=== PATIENT | male | born 1980 | race Caucasian/White ===

== ENCOUNTER 2024-04-24 16:50 | Observation (INO) | payer BC, MEDICARE, SELFPAY ==
[2024-04-24] VITALS (8 sets, daily range): BP systolic 112–125; BP diastolic 55–80; PULSE 70–90; RESP 12–24; TEMP 36.9–37.6; O2SAT 98–99; BMI 20.4; BMI 19.3
--- NOTE | 2024-04-24 18:44 | ED_ITS ---
HPI - Skin/Abscess/Foreign Bdy General Chief complaint: Skin/Abscess/Foreign Body Stated complaint: rectal abscess? or something Time Seen by Provider: 04/24/24 18:44 Source: patient Mode of arrival: Ambulatory Limitations: no limitations History of Present Illness HPI narrative: Patient is a 43-year-old male with no significant past medical history presents to the ED from home for evaluation of swelling pain discharge from his anus. He states that he has had a history of abscess that required surgical treatment several years ago has been doing fine until over the past few days noticed pain discomfort and discharge from his anal region. He denies any systemic symptoms such as fevers chills chest pain shortness of breath or any other GI/ symptoms time. Related Data Allergies Allergy/AdvReac Type Severity Reaction Status Date / Time meperidine [From Demerol] Allergy Verified 04/24/24 16:56 Review of Systems Review of Systems Narrative: General: Denies fever, chills, weight loss HEENT: Denies headache, eye drainage, eye irritation, head trauma, sore throat, voice change Cardiovascular: Denies any chest pain, palpitations, shortness of breath, tachycardia Respiratory: Denies any shortness of breath, cough, wheeze, stridor GI/: Positive anal swelling pain discharge Denies any abdominal pain, nausea, vomiting, diarrhea, bright red blood per rectum, melanotic stools, urinary frequency, urinary retention, dysuria, hematuria MSK: Denies any joint pain, muscle pains, swelling Skin: Denies any rashes, lesions, discoloration Neuro: Denies any headache, lightheadedness, dizziness, fainting, weakness Psych: Denies SI/HI Patient History Social History Smoking Status: Never smoker Smoking Status: Never smoker Substance Use Type: does not use Exam Narrative Exam Narrative: General: Cooperative, comfortable, well-developed, not in acute distress HEENT: Normocephalic, atraumatic, PERRLA, normal sclera, eyelids normal, Neck: Active full range of motion, atraumatic Chest: Normal to inspection, negative crepitus, no overlying erythema ecchymosis Respiratory: Normal respiratory effort, not in acute respiratory distress, clear to auscultation bilaterally negative cough, wheeze, tachypnea, rhonchi, rales Cardiology: Regular rate rhythm negative gallop, murmur, rubs GI/: Normal to inspection, soft, nonrigid, no tenderness to palpation, rectal exam: Patient with significant indurated area of the anal region involving the rectum, purulent discharge was noted MSK: Full range of active range of motion of all 4 extremities, atraumatic Skin: No rashes lesions noted Neuro: Alert awake oriented x3, moves all 4 extremities spontaneously, cranial nerves intact, able to answer all questions appropriately follows commands appropriately Psych: Cooperative, negative suicidal or homicidal ideations Initial Vital Signs Initial Vital Signs: Vital Signs Temperature 98.4 F 04/24/24 16:56 Pulse Rate 90 04/24/24 16:56 Respiratory Rate 16 04/24/24 16:56 Blood Pressure 125/80 04/24/24 16:56 Pulse Oximetry 99 04/24/24 16:56 Oxygen Delivery Method Room Air 04/24/24 16:56 Course Orders Ordered: ED Orders 04/24/24 18:49 CT abdomen pelvis w con Stat Blood Culture Stat 04/24/24 18:57 Complete Blood Count AUTO DIFF Stat Comprehensive Metabolic Panel Stat Lactate (Lactic Acid) Stat Vancomycin HCl/Dextrose (Vancomycin) 1,500 mg in 300 mls @ 150 mls/hr IV NOW SONG Last Admin: 04/24/24 20:25 Dose: 150 mls/hr Documented By: BIN Vancomycin HCl (Vancomycin) 1,250 mg in 250 mls @ 125 mls/hr IV Q12H SONG Discontinued Medications Vancomycin HCl (Vancomycin) 1,000 mg in 200 mls @ 200 mls/hr IV NOW ONE Stop: 04/24/24 20:55 Vital Signs Vital signs: Vital Signs - 8 hr 04/24/24 16:56 Temperature 98.4 F Pulse Rate 90 Respiratory Rate 16 Blood Pressure 125/80 Pulse Oximetry 99 Oxygen Delivery Method Room Air MDM - Skin/Abscess/Foreign Bdy Differential Diagnosis Differential diagnosis: Likely abscess of skin or subcutaneous tissue and other (Cellulitis,) Lab Data 04/24/24 18:57 04/24/24 18:57 Labs: Lab Results 04/24/24 Range/Units 18:57 WBC 11.5 H (4.5-11.0) X10^3/uL RBC 4.59 (4.5-5.9) X10^6/uL Hgb 13.3 L (13.5-17.5) g/dL Hct 40.1 L (41-53) % MCV 87.3 (80-100) fL MCH 28.9 (26-34) PG MCHC 33.1 (30-36) % RDW 13.0 (11.6-14.8) % Plt Count 322 (150-400) X10^3/uL Neut % (Auto) 79.5 H (50-75) % Lymph % (Auto) 9.4 L (25-40) % Iron % (Auto) 9.7 (3-14) % Eos % (Auto) 1.0 L (2-4) % Baso % (Auto) 0.4 (0-2) % Neut # (Auto) 9200 H (4909-5883) /uL Lymph # (Auto) 1100 (9578-3389) /uL Iron # (Auto) 1100 H (0-900) /uL Eos # (Auto) 100 (0-450) /uL Baso # (Auto) 0 (0-100) /uL Sodium 138 (137-145) mmol/L Potassium 4.1 (3.4-5.1) mmol/L Chloride 102 (98-107) mmol/L Carbon Dioxide 29 (22-32) mmol/L BUN 11 (9-20) mg/dL Creatinine 0.76 (0.66-1.25) mg/dL Estimated GFR > 60 (>60) mL/min BUN/Creatinine Ratio 14.5 (6-22) Glucose 94 (70-100) mg/dL Lactate 0.6 L (0.7-2.1) mmol/L Calcium 9.6 (8.4-10.2) mg/dL Total Bilirubin 0.3 (0.2-1.3) mg/dL AST 17 (17-59) IU/L ALT 24 (<50) IU/L Alkaline Phosphatase 31 L (38-126) U/L Total Protein 7.8 (6.3-8.2) g/dL Albumin 4.2 (3.5-5.0) g/dL Globulin 3.6 (1.7-4.1) g/dL Albumin/Globulin Ratio 1.2 (1.0-2.8) Imaging Data CT scan - abdomen/pelvis: Radiologist's Impression: [address] [address] [address] Scan Report Signed Patient: Akil Quintanilla MR#: [id number] : 1980 Acct:[id number] Age/Sex: 43 / M Date of Service: 04/24/24 Loc: ED Accession Number: [id number] Procedure: CT abdomen pelvis w con Ordering Provider: Arnaldo Hagan D.O. in [place]: CT ABDOMEN PELVIS W CON INDICATIONS: Swelling pain abscess at the anus TECHNIQUE: After the administration of intravenous contrast, axial sections acquired from the lung bases to the pubic symphysis. Coronal and sagittal reformats were performed. For radiation dose reduction, the following was used: automated exposure control, adjustment of mA and/or kV according to patient size. COMPARISON: [facility], CT, CT ABDOMEN PELVIS WITH CONTRAST, 11/26/2022, 18:41. FINDINGS: Image quality: Diagnostic. Lower Chest: No significant findings. ABDOMEN: Liver: No solid mass. Gallbladder: No radiopaque gallstones or wall thickening. Biliary ducts: No biliary dilation. Pancreas: No ductal dilation. Spleen: Size is within normal limits. Adrenal Glands: No adrenal nodules. Kidneys and Ureters: No hydronephrosis. No solid mass. No complex renal cystic lesion which requires follow up. Stomach and Bowel: Remote subtotal colectomy with fatemeh rectum. The appearance of the fatemeh rectum is similar to previous. Small bowel loops are nondilated. There is perianal phlegmon or abscess to the left of midline, measuring approximately 1.4 x 0.9 cm. Peritoneum: No abnormal intraperitoneal fluid. No free air. Ventral Wall: No significant ventral hernia. Abdominal Nodes: No retroperitoneal or mesenteric adenopathy by size criteria. Vessels: Aorta and inferior vena cava are normal in size. PELVIS: Pelvic Organs: Unremarkable. Bladder: No bladder wall thickening, accounting for underdistention. Pelvic Nodes: No enlarged lymph nodes. Miscellaneous: No inguinal hernias are seen. Bones: No aggressive osseous abnormality. IMPRESSION: 1. Remote subtotal colectomy with fatemeh rectum. 2. Left perianal phlegmon versus abscess measuring 1.4 x 0.9 cm. [facility] Narrative Medical decision making narrative: Patient is a 43-year-old male history of anal abscesses requiring incision drainage in the OR presents for rectal pain, discharge, swelling. States he started noticing this a few days ago, denies any other systemic symptoms. Has been able to have a normal bowel movement. Patient with elevated lactate elevated white blood cells, vancomycin was ordered, CT scan showing left perianal phlegmon versus abscess, did discuss case with Dr. Root of General surgery who agrees patient to be admitted for IV antibiotics and possible drainage in the OR given how close it is to the rectum itself. Patient understands and agrees with this plan The patient's management plan was discussed Dr. Martinez, who agrees to admit the patient to their service and assumes care of this patient at this time. Full admission orders will be placed by the primary team. Discharge Plan Departure Patient Disposition: Admitted as Observation Clinical Impression: Abscess, perianal Admit Date/Time: 04/24/24 20:39 Admit Provider: David Martinez
--- NOTE | 2024-04-24 18:49 | DI.CT.S_ITS ---
P in ROC[place]URE: CT ABDOMEN PELVIS W CON INDICATIONS: Swelling pain abscess at the anus TECHNIQUE: After the administration of intravenous contrast, axial sections acquired from the lung bases to the pubic symphysis. Coronal and sagittal reformats were performed. For radiation dose reduction, the following was used: automated exposure control, adjustment of mA and/or kV according to patient size. COMPARISON: [facility], CT, CT ABDOMEN PELVIS WITH CONTRAST, 11/26/2022, 18:41. FINDINGS: Image quality: Diagnostic. Lower Chest: No significant findings. ABDOMEN: Liver: No solid mass. Gallbladder: No radiopaque gallstones or wall thickening. Biliary ducts: No biliary dilation. Pancreas: No ductal dilation. Spleen: Size is within normal limits. Adrenal Glands: No adrenal nodules. Kidneys and Ureters: No hydronephrosis. No solid mass. No complex renal cystic lesion which requires follow up. Stomach and Bowel: Remote subtotal colectomy with fatemeh rectum. The appearance of the fatemeh rectum is similar to previous. Small bowel loops are nondilated. There is perianal phlegmon or abscess to the left of midline, measuring approximately 1.4 x 0.9 cm. Peritoneum: No abnormal intraperitoneal fluid. No free air. Ventral Wall: No significant ventral hernia. Abdominal Nodes: No retroperitoneal or mesenteric adenopathy by size criteria. Vessels: Aorta and inferior vena cava are normal in size. PELVIS: Pelvic Organs: Unremarkable. Bladder: No bladder wall thickening, accounting for underdistention. Pelvic Nodes: No enlarged lymph nodes. Miscellaneous: No inguinal hernias are seen. Bones: No aggressive osseous abnormality. IMPRESSION: 1. Remote subtotal colectomy with fatemeh rectum. 2. Left perianal phlegmon versus abscess measuring 1.4 x 0.9 cm. Dictated by: Nicholas Seals M.D. on 04/24/2024 at 19:54 Approved by: Nicholas Seals M.D. on 04/24/2024 at 19:59
[2024-04-24 19:05] LABS: Add Manual Diff / Slide Review NO; Basophils Absolute Auto 0 /uL (0-100); Basophils Percent Auto 0.4 % (0-2); Eosinophils Absolute Auto 100 /uL (0-450); Hematocrit 40.1 % (41-53); Hemoglobin 13.3 g/dL (13.5-17.5); Lymphocytes Absolute Auto 1100 /uL (1100-4500); Lymphocytes Percent Auto 9.4 % (25-40); Mean Corpuscular HGB Conc 33.1 % (30-36); Mean Corpuscular Hemoglobin 28.9 PG (26-34); Mean Corpuscular Volume 87.3 fL (80-100); Monocytes Absolute Auto 1100 /uL (0-900); Monocytes Percent Auto 9.7 % (3-14); Neutrophils Absolute Auto 9200 /uL (1500-7000); Neutrophils Percent Auto 79.5 % (50-75); Platelet Count 322 X10^3/uL (150-400); Red Blood Cell Count 4.59 X10^6/uL (4.5-5.9); White Blood Cell Count 11.5 X10^3/uL (4.5-11.0)
[2024-04-24 19:16] LABS: Alanine Aminotransferase 24 IU/L (<50); Albumin 4.2 g/dL (3.5-5.0); Albumin Globulin Ratio 1.2 (1.0-2.8); Alkaline Phosphatase 31 U/L (38-126); Aspartate Aminotransferase 17 IU/L (17-59); BUN Creatinine Ratio 14.5 (6-22); Bilirubin Total 0.3 mg/dL (0.2-1.3); Blood Urea Nitrogen 11 mg/dL (9-20); Calcium 9.6 mg/dL (8.4-10.2); Carbon Dioxide 29 mmol/L (22-32); Chloride 102 mmol/L (98-107); Estimated Glomerular Filt Rate > 60 mL/min (>60); Globulin 3.6 g/dL (1.7-4.1); Glucose 94 mg/dL (70-100); HEMOLYSIS < 15 (0-50); Lactate (Lactic Acid) 0.6 mmol/L (0.7-2.1); Potassium 4.1 mmol/L (3.4-5.1); Sodium 138 mmol/L (137-145); Total Protein 7.8 g/dL (6.3-8.2)
[2024-04-24] MEDS: VANCOMYCIN 1,500 MG/300 ML PIGGYBACK 150 MG IV (20:25)
[2024-04-24] MEDS: ONDANSETRON 4 MG/2 ML INJ IV (22:29)
[2024-04-24] MEDS: MORPHINE 2 MG/ML INJ IV (22:30)
[2024-04-24] MEDS: diphenhydrAMINE 50 MG/ML VIAL 25 MG IV (22:44)
[2024-04-25 02:00] VITALS: BP 111/72; PULSE 70; RESP 14; TEMP 37.1; O2SAT 96
[2024-04-25] MEDS: MORPHINE 2 MG/ML INJ IV ×5 (02:10→23:06)
[2024-04-25 06:00] VITALS: BP 110/71; PULSE 69; RESP 14; TEMP 37.2; O2SAT 96
[2024-04-25] MEDS: VANCOMYCIN 1,250 MG/250 ML PIGGYBACK 125 MG IV ×2 (09:01→20:53)
[2024-04-25 10:00] VITALS: BP 115/73; PULSE 77; RESP 16; TEMP 37.5; O2SAT 96
[2024-04-25] MEDS: diphenhydrAMINE 25 MG TABLET PO ×2 (11:19→20:53)
--- NOTE | 2024-04-25 11:36 | P.HP_ITS ---
History of Present Illness History of Present Illness Date Patient Seen: 04/25/24 Time Patient Seen: 11:36 Chief complaint: rectal abscess? or something Narrative: 44-year-old man history of perhaps Crohn's disease status post total abdominal colectomy with J-pouch who presents with a perianal abscess. Several days of worsening perianal pain. He presented to the [facility] Emergency room last night with fluctuance around the anus. He was admitted for possible incision and drainage started on vancomycin. This morning he feels remarkably better. He had spontaneous drainage of the abscess overnight. He remains afebrile. [facility] Medical History (Updated 04/25/24 @ 11:38 by David Martinez MD) Crohn's colitis Surgical History (Updated 04/25/24 @ 11:38 by David Maritnez MD) Hx of total colectomy Social History household members: spouse Smoking Status: Never smoker alcohol intake: never Meds Home Medications and Allergies Home Medications Medication Instructions Recorded Confirmed Type sertraline 100 mg tablet 100 mg PO DAILY depressive disorder 04/24/24 04/24/24 History Allergies Allergy/AdvReac Type Severity Reaction Status Date / Time meperidine [From Demerol] Allergy Verified 04/24/24 16:56 Exam Vital Signs (past 8 hours): - 04/25/24 06:00 04/25/24 10:00 Temperature 98.9 F 99.5 F Pulse Rate 69 77 Respiratory Rate 14 16 Blood Pressure 110/71 115/73 Pulse Oximetry 96 96 Oxygen Flow Rate 0 0 Oxygen Delivery Method Room Air Oxygen Flow Rate 0 Narrative Exam Narrative: General adult man alert oriented no acute distress Abdomen soft nontender nondistended midline scar. Rectum draining perianal abscess. Minimal fluctuance slight tenderness. Objective Labs 04/24/24 18:57 04/24/24 18:57 Labs: Laboratory Results - last 24 hr 04/24/24 18:57 WBC 11.5 H RBC 4.59 Hgb 13.3 L Hct 40.1 L MCV 87.3 MCH 28.9 MCHC 33.1 RDW 13.0 Plt Count 322 Neut % (Auto) 79.5 H Lymph % (Auto) 9.4 L [place] % (Auto) 9.7 Eos % (Auto) 1.0 L Baso % (Auto) 0.4 Neut # (Auto) 9200 H Lymph # (Auto) 1100 [place] # (Auto) 1100 H Eos # (Auto) 100 Baso # (Auto) 0 Sodium 138 Potassium 4.1 Chloride 102 Carbon Dioxide 29 BUN 11 Creatinine 0.76 Estimated GFR > 60 BUN/Creatinine Ratio 14.5 Glucose 94 Lactate 0.6 L Calcium 9.6 Total Bilirubin 0.3 AST 17 ALT 24 Alkaline Phosphatase 31 L Total Protein 7.8 Albumin 4.2 Globulin 3.6 Albumin/Globulin Ratio 1.2 Assessment & Plan Assessment and plan (1) Abscess, perianal: Status: Acute Assessment & Plan narrative: 44-year-old man history of Crohn's status post total abdominal proctectomy with J-pouch admitted with a perianal abscess. Abscess is spontaneously draining. We will hold off on rectal exam under anesthesia with possible incision and drainage given that this may resolve on its own without intervention. Risks of intervention is damage to the sphincter and given history of total abdominal colectomy with J-pouch this could be significant morbidity. Regular diet. Continue vancomycin for the next 24 hours reassess if continues to improve can discharge home with return precautions. If worsening pain then OR tomorrow for exam under anesthesia with possible I and D and fistulotomy. Time-Based Coding :: [TOTAL MINUTES] spent with patient and on the chart (including review of chart, obtaining history, exam, reviewing outside data, placing orders, documenting exam and treatment plan, and counseling patient) on [DATE].
--- NOTE | 2024-04-25 12:43 | CM.DANOTE ---
Initial DCP Assessment Note Pt is a 44 yo male, resident of [place], PMH includes total abd proctectomy with J-pouch, admitted with a perianal abscess. According to review of Dr Martinez's H+P, patient is feeling better and perianal abscess is spontaneously draining. Patient will remain admitted for an addtl 24hrs of IV abx and then will be considered for discharge home. PCP: MD Akil Chua Payer: [facility]/ federal No barriers identified at this time to patient's safe discharge home w/family to assist; close outpatient f/u recommended. CM team will plan to follow clinical course closely in case any DC needs or concerns arise. MARSHA Kim Discharge Planning/Care Management CM Discharge Assessment Start: 04/25/24 12:36 Freq: Status: Active Protocol: Document 04/25/24 12:37 VIJI (Rec: 04/25/24 12:42 [id number]) Discharge Planning Assessment Assigned Graduate Student MARSHA Chandler DPOA/Assigned Designee Name Sarah () Contact Information [phone] Advance Directives? No History Provided By Patient,Medical Record Prior Living Arrangements House Household Members spouse Type of transporation used prior to Drives own vehicle admit Independent with ADL's Yes Is patient alert and oriented? Yes Barriers to Discharge No Discharge Plan Home Transportation Arrangement Spouse Referrals Initiated None needed
[2024-04-25 16:00] VITALS: BP 101/54; PULSE 65; RESP 14; TEMP 37; O2SAT 98
[2024-04-25] MEDS: ONDANSETRON 4 MG/2 ML INJ IV (18:59)
[2024-04-25 19:00] VITALS: BP 99/59; PULSE 60; RESP 18; TEMP 37.2; O2SAT 97
[2024-04-25 23:00] VITALS: BP 103/60; PULSE 71; RESP 18; TEMP 37.3; O2SAT 97
[2024-04-26 03:00] VITALS: BP 105/64; PULSE 66; RESP 18; TEMP 37.1; O2SAT 95
[2024-04-26] MEDS: MORPHINE 2 MG/ML INJ IV ×2 (03:14→08:43)
[2024-04-26 08:11] VITALS: BP 97/57; PULSE 70; RESP 16; TEMP 36.9; O2SAT 97
[2024-04-26] MEDS: VANCOMYCIN TROUGH 1 REQUEST MISC (08:30)
[2024-04-26] MEDS: SODIUM CHLORIDE 0.9% FLUSH 10 ML IV (08:35)
[2024-04-26 09:11] LABS: Vancomycin Trough 8.3 ug/mL (10-20)
[2024-04-26] MEDS: VANCOMYCIN 1,250 MG/250 ML PIGGYBACK 125 MG IV (10:02)
[2024-04-26] MEDS: diphenhydrAMINE 25 MG TABLET PO (10:02)
[2024-04-26 12:00] VITALS: BP 119/76; PULSE 67; RESP 15; TEMP 36.6; O2SAT 97
[2024-04-26] MEDS: VANCOMYCIN PEAK 1 REQUEST MISC (13:15)
[2024-04-26] MEDS: OXYCODONE IR 5 MG TABLET PO (13:39)
[2024-04-26 13:49] LABS: Vancomycin Peak 24.8 ug/mL (20-40)
--- NOTE | 2024-04-26 14:07 | PM.DS.1 ---
History of Present Illness History of Present Illness Date Patient Seen: 04/26/24 Time Patient Seen: 14:07 Chief complaint: rectal abscess? or something Narrative: Feels better today. Comfortable going home today Discharge Providers Provider Date of admission: 04/24/24 20:39 Discharge Date: 04/26/24 Primary care physician: AMELIE Carey Consults: 04/24/24 21:28 Consult to General Surgery Urgent Comment: Consulting Provider: David Martinez Reason for consultation: rectal abscess Has provider been notified: Yes Discharge provider: Danilo Robles MD Exam Vital Signs (past 8 hours): - 04/26/24 08:11 04/26/24 12:00 Temperature 98.4 F 97.8 F Pulse Rate 70 67 Respiratory Rate 16 15 Blood Pressure 97/57 L 119/76 Pulse Oximetry 97 97 Oxygen Flow Rate 0 0 Oxygen Delivery Method Room Air Oxygen Flow Rate 0 Const General: No acute distress Objective Labs 04/24/24 18:57 04/24/24 18:57 Labs: Laboratory Results - last 24 hr 04/26/24 04/26/24 08:30 13:15 Vancomycin Peak 24.8 Vancomycin Trough 8.3 L PFSH Medical History (Updated 04/25/24 @ 11:38 by David Martinez MD) Crohn's colitis Surgical History (Updated 04/25/24 @ 11:38 by David Martinez MD) Hx of total colectomy Social History household members: spouse Smoking Status: Never smoker alcohol intake: never Discharge Plan Discharge Plan Patient Disposition: Home Discharge orders & Medications Prescriptions: New oxycodone 5 mg capsule 5 mg PO Q8H PRN (Reason: pain) Qty: 14 0RF Continued sertraline 100 mg tablet 100 mg PO DAILY Visit Report/Discharge Packet Stand Alone Forms: Patient Portal/API, Stroke Signs & Symptoms Discharge Data Primary Care Provider: Macie Bender Attending Provider: David Martinez Admit Date/Time: 04/24/24 20:39
--- NOTE | 2024-04-26 15:09 | PC.NURSE ---
pt given discharge education and instructions, Pt's questions answered, pt independent in room, dressed and has all belongings, IV removed, pharmacy updated in chart and message left for provider to send to [facility]. RN walked pt down to front entrance, riding home with .
--- NOTE | 2024-05-06 13:02 | PC.NURSE ---
late entry - per RN vancomycin IV end time of 2229
== END 2024-04-26 15:48 | disposition home or self-care (01) ==
LOC: ED 18:44 → AC 20:40
PROVIDERS: Admitting Provider Surgery; Emergency Provider Student in an Organized Health Care Education/Training Program; PCP Nurse Practitioner Family; Referring Provider Student in an Organized Health Care Education/Training Program; Visit Provider Surgery
DX: K61.0 Anal abscess (principal); Z87.19 Personal history of other diseases of the digestive system; Z98.0 Intestinal bypass and anastomosis status
CPT/HCPCS: 36415; 74177; 80053; 80202; 83605; 85025; 87040; 96365; 96366; 96375; 96376; 99232; 99238; 99284; G0378; J1200; J2270; J2405; Q9967

== ENCOUNTER 2024-09-24 07:07 | Emergency (ER) | payer MEDICARE, SELFPAY ==
[2024-04-24 22:33] VITALS: BMI 19.3
[2024-09-24 07:20] VITALS: BP 122/77; PULSE 73; RESP 18; TEMP 36.5; O2SAT 97; BMI 22.1
--- NOTE | 2024-09-24 07:31 | ED_ITS ---
HPI - Recheck/Abnormal Lab/Rx General Chief Complaint: Abdominal Pain Stated Complaint: Medicine reaction Time Seen by Provider: 09/24/24 07:26 History of Present Illness HPI narrative: Patient is a 44-year-old male history of chronic opiate use has been taking Suboxone for a number of years he was trying to wean himself down he is on 2/0.5 mg he has been out for 5 days. He feels like he is shaking nauseous no diarrhea but going through withdrawals. He thought he had refills left on his medication he does not. He was calling his PCP office to get refills. No abdominal pain chest pain shortness of breath or other symptoms. He has history of Crohn's disease has chronically been on opiate currently taking Augmentin. Records do report that he has had a total abdominal colectomy with a J-pouch Related Data Home Medications Medication Instructions Recorded Confirmed sertraline 100 mg tablet 100 mg PO DAILY depressive disorder 04/24/24 04/24/24 Previous Rx's Medication Instructions Recorded oxycodone 5 mg capsule 5 mg PO Q8H PRN pain #14 caps 04/26/24 ondansetron 4 mg disintegrating 4 mg PO Q8H PRN nausea and 09/24/24 tablet vomiting #10 tabs Allergies Allergy/AdvReac Type Severity Reaction Status Date / Time meperidine [From Demerol] Allergy Verified 04/24/24 16:56 Patient History Medical History Crohn's colitis Surgical History Hx of total colectomy Social History household members: spouse alcohol intake: never Exam Initial Vital Signs Initial Vital Signs: Vital Signs Temperature 97.7 F 09/24/24 07:20 Pulse Rate 73 09/24/24 07:20 Respiratory Rate 18 09/24/24 07:20 Blood Pressure 122/77 09/24/24 07:20 Pulse Oximetry 97 09/24/24 07:20 Oxygen Delivery Method Room Air 09/24/24 07:20 GENERAL: Well-appearing, well-nourished and in no acute distress. HEENT: Head atraumatic,EOMI, pupils reactive, face symmetric, moist mucous membranes CARDIOVASCULAR: Regular rate and rhythm without murmurs, rubs or gallops. RESPIRATORY: Breath sounds equal bilaterally, no wheezes rales or rhonchi. ABDOMEN: Soft, nontender. Normoactive bowel sounds all 4 quadrants. No guarding or rebound. EXTREMITIES: Normal range of motion, no clubbing or edema. Neurovascularly intact NEUROLOGICAL: Alert and oriented x4.Normal gait and speech. Cranial nerves II through XII grossly intact. SKIN: Warm, dry, no laceration, no petechiae, no rashes or lesions. Course Orders Ordered: Discontinued Medications Buprenorphine/Naloxone (Buprenorphine/Naloxone 8mg/2mg 1 Tab) 1 tab SL NOW ONE Stop: 09/24/24 07:39 Last Admin: 09/24/24 07:46 Dose: 1 tab Documented By: DAYNE Ondansetron HCl (Ondansetron 4 Mg Odt) 4 mg SL NOW ONE Stop: 09/24/24 07:37 Last Admin: 09/24/24 07:45 Dose: 4 mg Documented By: DAYNE Vital Signs Vital signs: Vital Signs - 8 hr 09/24/24 07:20 09/24/24 07:50 Temperature 97.7 F Pulse Rate 73 74 Respiratory Rate 18 16 Blood Pressure 122/77 124/76 Pulse Oximetry 97 97 Oxygen Delivery Method Room Air Room Air MDM - Recheck/Abnormal Lab/Rx MDM Narrative Medical decision making narrative: Patient is a 44-year-old male history of Crohn's disease with colectomy and J- pouch currently on Augmentin presenting today with nausea and shaking. He is chronically on opiates out of his Suboxone for 5 days. Abdomen is soft nontender no distention not vomiting. Low suspicion for bowel obstruction. I suspect that this is opiate withdrawal Suboxone withdrawal. He was given 1 Suboxone patch here to cut into for we will call his primary for a refill. He was also given Zofran. Discharge Plan Departure Patient Disposition: Home Clinical Impression: Opiate withdrawal Activity Restrictions/Additional Instructions: *You have been diagnosed with opiate withdrawal *What to do: Please call your PCP for refill *Continue to take medications as directed Zofran 4 mg every 8 hours for nausea or vomiting *Follow up with your primary care provider in 2-3 days or call [phone] *Return to ER if you should have increasing nausea vomiting abdominal pain or any new, worsening or concerning symptoms Prescriptions: New ondansetron 4 mg tablet,disintegrating 4 mg PO Q8H PRN (Reason: nausea and vomiting) Qty: 10 0RF No Action sertraline 100 mg tablet 100 mg PO DAILY oxycodone 5 mg capsule 5 mg PO Q8H PRN (Reason: pain) Qty: 14 0RF Referrals: Macie Bender ARNP [Primary Care Provider] - Stand Alone Forms: Patient Portal/API/Survey
[2024-09-24] MEDS: ONDANSETRON 4 MG ODT SL (07:45)
[2024-09-24] MEDS: BUPRENORPHINE/NALOXONE 8MG/2MG 1 TAB SL (07:46)
[2024-09-24 07:50] VITALS: BP 124/76; PULSE 74; RESP 16; O2SAT 97
== END 2024-09-24 07:55 | disposition home or self-care (01) ==
PROVIDERS: Emergency Provider Emergency Medicine; PCP Nurse Practitioner Family
DX: F11.23 Opioid dependence with withdrawal (principal); Z90.49 Acquired absence of other specified parts of digestive tract
CPT/HCPCS: 99283

== ENCOUNTER 2024-09-29 13:06 | Emergency (ER) | payer MEDICARE, SELFPAY ==
[2024-04-24 22:33] VITALS: BMI 19.3
[2024-09-29 13:09] VITALS: BP 117/65; PULSE 82; RESP 16; TEMP 36.9; O2SAT 98; BMI 21.1
--- NOTE | 2024-09-29 13:20 | ED.RECABL ---
HPI - Recheck/Abnormal Lab/Rx General Chief Complaint: Recheck/Abnormal Lab/Rx Stated Complaint: pain med withdrawals Time Seen by Provider: 09/29/24 13:15 Source: patient Mode of arrival: Ambulatory History of Present Illness HPI narrative: 44-year-old male with a past medical history of chronic opiate use on Suboxone secondary to history of Crohn's disease presents to the emergency department from home for evaluation of medication refill. 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 He states that he has not had it for the past few days and feels like he is withdrawing, states that he feels hot and cold but denies any other symptoms at this time. Related Data Home Medications Medication Instructions Recorded Confirmed sertraline 100 mg tablet 100 mg PO DAILY depressive disorder 04/24/24 04/24/24 Previous Rx's Medication Instructions Recorded oxycodone 5 mg capsule 5 mg PO Q8H PRN pain #14 caps 04/26/24 ondansetron 4 mg disintegrating 4 mg PO Q8H PRN nausea and 09/24/24 tablet vomiting #10 tabs buprenorphine 2 mg-naloxone 0.5 mg 1 film buccal BID 1 week #30 ea 09/29/24 sublingual film (Suboxone) Allergies Allergy/AdvReac Type Severity Reaction Status Date / Time meperidine [From Demerol] Allergy Verified 04/24/24 16:56 Review of Systems Review of Systems Narrative: General: Positive Medication refill, Denies fever, chills, weight loss HEENT: Denies headache, eye drainage, eye irritation, head trauma, sore throat, voice change Cardiovascular: Denies any chest pain, palpitations, tachycardia Respiratory: Denies any shortness of breath, cough, wheeze, stridor GI/: Denies any abdominal pain, nausea, vomiting, diarrhea, bright red blood per rectum, melanotic stools, urinary frequency, urinary retention, dysuria, hematuria MSK: Denies any joint pain, muscle pains, swelling Skin: Denies any rashes, lesions, discoloration Neuro: Denies any headache, lightheadedness, dizziness, fainting, weakness Psych: Denies SI/HI Patient History Medical History Crohn's colitis Surgical History Hx of total colectomy Social History household members: spouse Smoking Status: Current some day smoker alcohol intake: never Smoking Status: Current some day smoker tobacco type: vaping Exam Narrative Exam Narrative: General: Cooperative, well-developed, not in acute distress HEENT: Normocephalic, atraumatic, PERRLA, normal sclera, eyelids normal Neck: Active full range of motion, atraumatic Chest: Normal to inspection, negative crepitus, no overlying erythema ecchymosis Respiratory: Normal respiratory effort, not in acute respiratory distress, clear to auscultation bilaterally negative cough, wheeze, tachypnea, rhonchi, rales Cardiology: Regular rate rhythm negative gallop, murmur, rubs GI/: No tenderness to palpation, soft, non rigid, normal to inspection, exam deferred MSK: Full active range of motion in all 4 extremities, atraumatic, no tenderness to palpation of any bony prominences Skin: No rashes or lesions noted Neuro: Alert awake oriented x3, moves all 4 extremities spontaneously, cranial nerves intact, able to answer all questions appropriately follows commands appropriately Psych: Cooperative, negative suicidal or homicidal ideations Initial Vital Signs Initial Vital Signs: Vital Signs Temperature 98.4 F 09/29/24 13:09 Pulse Rate 82 09/29/24 13:09 Respiratory Rate 16 09/29/24 13:09 Blood Pressure 117/65 09/29/24 13:09 Pulse Oximetry 98 09/29/24 13:09 Oxygen Delivery Method Room Air 09/29/24 13:09 Course Orders Ordered: ED Orders 09/29/24 13:14 Consult to [employer]ERSON [employer]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 He states that he has not had his Suboxone in the past few days, states that this is due to the fact that he states that the police that he normally gets his pain medicine from closed, he states this was in [place]. Patient stating that he does have an appointment on 10/07/2024 with his primary care doctor in order to try to get additional prescription but states that he feels like he is starting to withdrawal, he states that when he noticed that he did not have anymore refills he did try to slowly taper but states that he feels like his skin is on fire he denies any other symptoms at this time. On exam patient with a cows score of 2, did attempt to give patient a dose of his Suboxone, however we do not currently have the appropriate doses here in the emergency department after discussion with pharmacy, therefore patient will be sent home with a prescription instructed to follow up with his scheduled appointment with his primary care doctor, he also was given other resources to try to set up with other pain management specialists in the area given the fact that he states that he recently moved from [place]. He was given strict return precautions he verbalized understanding of this and agrees to being discharged home with outpatient follow up Discharge Plan Departure Patient Disposition: Home Clinical Impression: Encounter for medication refill Activity Restrictions/Additional Instructions: Please follow up with the primary care doctor and your stained glass painter Please read the discharge instructions sheet carefully and bring all papers to all doctor follow-up visits, as it may contain information that your doctor may want to see. Disease processes change and evolve, if your symptoms worsen or if you develop any new symptoms that are concerning to you please return for evaluation. Your evaluation today does not show any evidence of any life-threatening/serious illnesses requiring admission to the hospital or surgery. Please follow-up with your doctor for re-evaluation in approximately 1 day. Seek immediate medical attention for any worrisome symptoms. *If you do not have a primary care provider please contact the [facility] Resource line at [phone]. They will ask some questions about your medical history and help get you set up with a doctor in the community. Prescriptions: New buprenorphine-naloxone [Suboxone] 2-0.5 mg film 1 film buccal BID 7 Days Qty: 30 0RF Rx Instructions: place 1 strip/tab under (each) side of tongue No Action sertraline 100 mg tablet 100 mg PO DAILY oxycodone 5 mg capsule 5 mg PO Q8H PRN (Reason: pain) Qty: 14 0RF ondansetron 4 mg tablet,disintegrating 4 mg PO Q8H PRN (Reason: nausea and vomiting) Qty: 10 0RF Referrals: Macie Bender ARNP [Primary Care Provider] - Stand Alone Forms: Patient Portal/API/Survey
--- NOTE | 2024-09-29 13:22 | CM.SWNOTE ---
ED COMPUTER PROGRAMMING SUPERVISOR Note COMPUTER PROGRAMMING SUPERVISOR receives consult to provide patient with MAT and АНДРЕЙ resources. Patient was on Suboxone at a clinic in [place] but they closed and patient has not established with new clinic. COMPUTER PROGRAMMING SUPERVISOR provides patient with resources and identifies that [facility] has a clinic in [place], patient plans to reach out to them. ED provider to provide patient with rx until he establishes care. Plan: patient to d/c upon medical clearance with АНДРЕЙ and MAT resources provided, patient to d/c with temporary rx. AVELINO Purdy
[2024-09-29 13:30] VITALS: BP 112/65; PULSE 75; RESP 14; O2SAT 98
== END 2024-09-29 13:28 | disposition home or self-care (01) ==
PROVIDERS: Emergency Provider Student in an Organized Health Care Education/Training Program; PCP Nurse Practitioner Family
DX: Z76.0 Encounter for issue of repeat prescription (principal); F11.10 Opioid abuse, uncomplicated
CPT/HCPCS: 99281